=== PATIENT | male | born 1990 | race Caucasian/White ===

== ENCOUNTER 2016-08-11 22:34 | Inpatient (IN) | payer OTHER, BC ==
[~2016-08-11] VITALS: Ht 195.6 cm; Wt 91.1 kg
[~2016-08-11 22:34] MED LIST: FLEXERIL10 MG; NOHOMEMEDS; PERCOCET 5/31 TABLET; VALIUM5 MG
[2016-08-11 23:00] LABS: HEMATOCRIT 44.7 % (38.0-50.0); MCH 30.2 PG (29.0-34.0); MCHC 35.6 G/DL (30.0-36.0); MCV 84.8 FL (86-99); MEAN PLAT.VOLUME 10.1 uM^3 (9.0-12.4); PLATELET COUNT 227 K/uL (156-360); RBC DIS.WIDTH-CV 12.7 % (11.8-14.6); RBC DIS.WIDTH-SD 39.5 % (39-53); RED BLOOD COUNT 5.27 M/uL (4.00-5.50); WHITE BLOOD COUNT 9.1 K/uL (4.1-10.2)
[2016-08-11 23:13] LABS: CHLORIDE 107 mEq/L (99-109); POTASSIUM 3.5 mEq/L (3.7-5.4); SODIUM 141 mEq/L (136-147)
[2016-08-11 23:15] LABS: GLUCOSE 106 mg/dL (70-99)
[2016-08-11 23:16] LABS: ANION GAP 11 MEQ/L (2-14)
[2016-08-11 23:18] LABS: GFR ESTIMATE (CALCULATED) > 59 mL/min/; SERUM ETHYL ALCOHOL 250 mg/dL
[2016-08-11 23:19] LABS: UREA NITROGEN (BUN) 13 mg/dL (9-23)
[2016-08-12] VITALS (7 sets, daily range): BP systolic 107–123; BP diastolic 58–84
[2016-08-12 05:38] LABS: HEMATOCRIT 40.9 % (38.0-50.0); MCH 30.5 PG (29.0-34.0); MCV 87.2 FL (86-99); MEAN PLAT.VOLUME 10.7 uM^3 (9.0-12.4); PLATELET COUNT 196 K/uL (156-360); RBC DIS.WIDTH-CV 13.1 % (11.8-14.6); RBC DIS.WIDTH-SD 41.6 % (39-53); RED BLOOD COUNT 4.69 M/uL (4.00-5.50); WHITE BLOOD COUNT 10.6 K/uL (4.1-10.2)
[2016-08-12 06:02] LABS: ALKALINE PHOSPHATASE 59 IU/L (3-129); ANION GAP 13 MEQ/L (2-14); CHLORIDE 108 MEQ/L (99-109); GFR ESTIMATE (CALCULATED) > 59 mL/min/; GLUCOSE 88 mg/dL (70-99); SAMPLE HEMOLYSIS CHECK 0; SAMPLE ICTERIC CHECK 0; SAMPLE LIPEMIA CHECK 0; SODIUM 143 MEQ/L (136-147); TOTAL BILIRUBIN 0.5 MG/DL (0.0-1.0); UREA NITROGEN (BUN) 12 mg/dL (9-23)
[2016-08-12 06:05] LABS: POTASSIUM 4.3 MEQ/L (3.7-5.4)
[2016-08-13 03:21] VITALS: BP 109/76
[2016-08-13 07:21] VITALS: BP 123/82
[2016-08-13 11:26] VITALS: BP 132/84
[2016-08-13 16:02] VITALS: BP 136/78
[2016-08-13 19:39] VITALS: BP 121/81
[2016-08-14 00:23] VITALS: BP 115/70
[2016-08-14 03:57] VITALS: BP 113/78
[2016-08-14 08:04] VITALS: BP 119/67
[2016-08-14 11:57] VITALS: BP 136/81
[2016-08-14 16:01] VITALS: BP 125/79
[2016-08-14 20:00] VITALS: BP 136/67
[2016-08-15] VITALS: BP 125/81
[2016-08-15 04:00] VITALS: BP 143/87
[2016-08-15 08:21] VITALS: BP 116/76
[2016-08-15 12:23] VITALS: BP 125/76
[2016-08-15 17:15] VITALS: BP 134/88
[2016-08-16] VITALS: BP 147/87
[2016-08-16 07:59] VITALS: BP 136/74
[2016-08-16] MEDS ORDERED: ENDOCET 5-3251 EACH PO (08:46)
[2016-08-16 09:07] VITALS: BP 138/64
== END 2016-08-16 16:10 | disposition home or self-care (01) | DRG 200 ==
LOC: TRA 22:34 → EDOF 08-12 01:05 → 3EAST 08-12 01:05
PROVIDERS: Emergency Medicine; Surgery
PROC: 0W9B30Z Drainage of Left Pleural Cavity with Drainage Device, Percutaneous Approach (ICD-10-PCS; principal; 2016-08-12)
DX: S27.0XXA Traumatic pneumothorax, initial encounter (principal); S27.321A Contusion of lung, unilateral, initial encounter; V47.0XXA Car driver injured in collision with fixed or stationary object in nontraffic accident, initial encounter; M40.202 Unspecified kyphosis, cervical region; E87.6 Hypokalemia; F10.129 Alcohol abuse with intoxication, unspecified; I95.9 Hypotension, unspecified; F17.210 Nicotine dependence, cigarettes, uncomplicated; Y90.8 Blood alcohol level of 240 mg/100 ml or more; S00.81XA Abrasion of other part of head, initial encounter; Z91.19 Patient's noncompliance with other medical treatment and regimen; Y92.410 Unspecified street and highway as the place of occurrence of the external cause
CPT/HCPCS: 70450; 71010; 71260; 72040; 72125; 74177; 80048; 80053; 85027; 99281; 99285; G0480; J1170; J1650; J1885; J2060; J7030; J7120

== ENCOUNTER 2018-01-13 05:14 | Day surgery (SDC) | payer BC ==
[~2018-01-13] VITALS: Ht 195.6 cm; Wt 99.8 kg
[~2018-01-13 05:14] MED LIST changes: +CLARITIN10 MG PO; +DAILY VALUE1 EACH PO; +ENDOCET 5-3251 EACH PO
[2018-01-13 05:48] VITALS: BP 130/83
[2018-01-13] MEDS ORDERED: PERCOCET 5/31 TABLET PO (09:22)
[2018-01-13] MEDS ORDERED: COLACE100 MG PO (09:22)
[2018-01-13 10:18] VITALS: BP 142/86
[2018-01-13 10:53] VITALS: BP 141/83
== END 2018-01-13 10:55 | disposition home or self-care (01) ==
LOC: SDC 05:14
PROC: 0WUF4JZ Supplement Abdominal Wall with Synthetic Substitute, Percutaneous Endoscopic Approach (ICD-10-PCS; principal; 2018-01-13)
DX: K42.9 Umbilical hernia without obstruction or gangrene (principal); Z87.891 Personal history of nicotine dependence
CPT/HCPCS: 88302; C1781; J0131; J0330; J0690; J1170; J1885; J2001; J2405; J2710; J3010; J3475; J7643